=== PATIENT | female | born 1975 | race Caucasian/White ===

== ENCOUNTER 2020-08-23 16:05 | Day surgery (SDC) | payer OTHER, SELFPAY ==
[2020-08-23] VITALS (11 sets, daily range): BP systolic 111–134; BP diastolic 61–107; PULSE 91–124; RESP 10–22; TEMP 36.6–37.3; O2SAT 96–100
--- NOTE | ~2020-08-23 | US_ITS ---
EXAMINATION: US OB <=14 wk fetus w TV EXAM DATE: 08/23/2020 18:40 INDICATION: Ectopic 1st trimester. TECHNIQUE: Pelvic obstetrical transabdominal sonogram was performed by a technologist. There are mu ltiple grayscale and Doppler images available for interpretation. There are no earlier studies of th is gestation for comparison. FINDINGS: Uterus measures 6.6 x 2.9 x 3.3 cm, without intrauterine identified. Cannot iden tify any image capturing measurement of endometrial stripe thickness, but it is within normal limits. There is moderate free pelvic fluid. Early intrauterine or recent spontaneous are common causes of elevated beta hCG in absence of intrauterine confirmation. Ultrasound ca n sometimes identify, but never exclude an ectopic in the setting of positive beta hCG. Fo llow up as warranted clinically with serial beta hCG levels or ultrasound. Right adnexa: The ovary measures 2.4 x 1.8 x 2.8 cm and is morphologically normal. Ovarian vascular f low confirmed. Left adnexa: The ovary measures 4.1 x 3.1 x 3.7 cm, mildly enlarged with heterogeneous echogenicity. No color or Doppler flow was obtained. Appearance is suspicious for ovarian torsion. IMPRESSION: 1. Mildly enlarged heterogeneous left ovary without flow identified. Probable ovarian torsion. 2. No intrauterine or extrauterine identified. I discussed suspicion of torsion with Gem Blandon MD at 08/23/2020 18:54 RETORT COOLER. Reviewed, dictated and finalized at location A. RT COOLER
[2020-08-23 16:53] LABS: Basophils Absolute Auto 0.1 K/mm3 (0.0-0.1); Basophils Percent Auto 0.6 % (0.2-1.2); Eosinophils Absolute Auto 0.1 K/mm3 (0-0.3); Eosinophils Percent Auto 0.5 % (0-4.4); Hematocrit 37.9 % (37.0-47.0); Hemoglobin 12.9 g/dL (12.0-15.0); Immature Granulocyte Absolute 0.14 K/mm3 (0.00-0.031); Lymphocytes Absolute Auto 2.71 K/mm3 (0.9-3.2); Lymphocytes Percent Auto 19.3 % (18.3-44.2); Mean Corpuscular Hemoglobin 32.5 pg (26-34); Mean Corpuscular Volume 95.5 fl (80-100); Mean Platelet Volume 9.5 fl (7.4-10.4); Monocytes Absolute Auto 0.8 K/mm3 (0.1-0.6); Neutrophils Absolute Auto 10.2 K/mm3 (1.3-6.7); Neutrophils Percent Auto 72.6 % (45.5-73.1); Platelet Count Result 332 k/mm3 (150-375); Red Blood Count 3.97 M/mm3 (4.2-5.4); Red Cell Distribution Width 14.6 % (11.5-14.5)
[2020-08-23 16:58] LABS: Add Urine Microscopic? YES; Appearance Urine Clear (Clear); Bilirubin Urine Negative (Negative); Blood Urine 3+ (Negative); Color Urine Yellow (Yellow); Glucose Urine UA Negative (Negative); Ketones Urine Negative (Negative); Leukocyte Esterase Ur Negative LEU/UL (Negative); Mucus Urine Rare /lpf; Nitrate Urine Negative (Negative); Protein Urine Negative (Negative); RBC Urine >75 /hpf (0-2); Specific Grav Ur 1.024 (1.001-1.035); Squamous Epithelial Cell Urine Rare /hpf (Few); Urobilinogen Urine Negative mg/dL (<2.0); WBC Urine 0-3 /hpf
[2020-08-23 17:04] LABS: Alanine Aminotransferase 29 U/L (4-35); Albumin Level 4.3 g/dL (3.5-5.1); Alkaline Phosphatase 84 U/L (38-126); Anion Gap 7 mmol/L (8-16); Aspartate Amino Transferase 35 U/L (14-36); Bilirubin,Total 0.7 mg/dL (0.2-1.3); Blood Urea Nitrogen 9 mg/dL (7-17); Carbon Dioxide 18 mmol/L (22-30); Chloride 109 mmol/L (98-107); Estimated CRCL calculation 92 ml/min; Estimated Glomerular Filt Rate > 60; Glucose 108 mg/dL (65-105); Lipase 32 U/L (23-300); Potassium 3.8 mmol/L (3.4-5.0); Sodium 134 mmol/L (137-145)
--- NOTE | 2020-08-23 17:44 | ED.FEMALEGU ---
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 The starting her menstrual cycle May 16, this morning patient also developed heavy bleeding with blood clots. test came back positive at her family physician office then referred to the emergency room to rule out ectopic . Patient is 1 para 1 0. Patient does not use any contraceptive measures and is sexually active Related Data Home Medications Medication Instructions Recorded Confirmed etonogestrel 68 mg subdermal 1 implant SUBDERMAL ONCE 08/23/20 08/23/20 implant Allergies Allergy/AdvReac Type Severity Reaction Status Date / Time No Known Allergies Allergy Verified 08/23/20 15:09 Review of Systems Review of Systems: Narrative: CONSTITUTIONAL: Denies fever, chills, or sweats. EYES: Denies visual changes, redness, or discharge. ENT: Denies rhinorrhea, congestion, sore throat, or otalgia. CARDIOVASCULAR: Denies chest pain, palpitations, or edema. RESPIRATORY: Denies cough or dyspnea. GASTROINTESTINAL: Denies abdominal pain, nausea, vomiting, or diarrhea. GENITOURINARY: Denies dysuria or hematuria. SKIN: Denies rash or itching. MUSCULOSKELETAL: Denies back pain, joint pain, or myalgia. NEUROLOGIC: Denies headache, numbness, or weakness. PSYCHIATRIC: Denies anxiety or depression. PMFSH Past Medical History Medical History Mucous polyp of cervix Family History Family History Mother Family history of hypercholesterolemia Hypertension Family history of arthritis Grandparent Family history of malignant neoplasm of breast Other Cerebrovascular accident Social History Social History Smoking status: Current every day smoker Second hand tobacco smoke exposure: No Alcohol intake: current Gender identity (if verbalized by the patient): Female Exam Narrative: Exam Narrative: General appearance: Well-developed, well-nourished Skin: Normal color Head: Normocephalic, nontraumatic Eyes: Clear conjunctiva ENT: Oropharynx normal, ears normal, nose normal Neck: Supple, nontender Chest and respiratory: Airway patent, no respiratory distress, no accessory muscle use Heart: Regular rate/rhythm Abdomen: Soft, diffuse tenderness of the lower abdomen mainly left lower quadrant, no organomegaly, quiet bowel sounds Vascular: Normal peripheral pulses, normal capillary refill. 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 Gabriella Magaña Date: 08/23/20 Time: 19:35 Vital Signs Vital signs: Vital Signs Temperature 36.6 C 08/23/20 16:33 Pulse Rate 124 H 08/23/20 16:33 Respiratory Rate 22 H 08/23/20 16:33 Blood Pressure 112/61 08/23/20 16:33 Pulse Oximetry 100 08/23/20 16:33 Temperature 36.6 C 08/23/20 16:33 Pulse Rate 91 08/23/20 19:25 Respiratory Rate 15 08/23/20 19:25 Blood Pressure 134/91 H 08/23/20 19:25 Pulse Oximetry 98 08/23/20 19:25 MDM - Female Genitourinary MDM Narrative Medical decision making narrative: Patient presents with lower abdomina
[2020-08-23] MEDS: ONDANSETRON INJ 4 MG/2 ML VIAL IV PUSH (19:38)
[2020-08-23] MEDS: MORPHINE SULFATE (*CRX) 4 MG/ML INJ IV PUSH (19:39)
--- NOTE | 2020-08-23 19:55 | PM.IMHP ---
H&P: HPI History of Present Illness Date/Time: 08/23/20 19:55 Chief Complaint: pain l Narrative: Viola Murillo is a 44 year old female admitted with quantitative HCG is 1720 an ultrasound showing a left adnexal mass with possible torsion. No intrauterine is seen in the endometrial stripe appears within normal limits. Free fluid is also seen this is consistent with a likely ectopic and possible torsion. I have discussed the findings with her and risks and benefits of laparoscopy with possible left salpingostomy, possible left salpingectomy, possible left salpingo-oophorectomy being possible. Notably she has a Nexplanon in which was due out in early April. She also has had a previous section. Review of Systems Review of Systems: All systems reviewed & are unremarkable except as noted in HPI and below PMFSH Past Medical History Medical History Mucous polyp of cervix Family History Family History Mother Family history of hypercholesterolemia Hypertension Family history of arthritis Grandparent Family history of malignant neoplasm of breast Other Cerebrovascular accident Social History Social History Smoking status: Current every day smoker Second hand tobacco smoke exposure: No Alcohol intake: current Gender identity (if verbalized by the patient): Female Meds Home Medications and Allergies Home Medications Medication Instructions Recorded Confirmed Type etonogestrel 68 mg subdermal 1 implant SUBDERMAL ONCE 08/23/20 08/23/20 History implant Allergies Allergy/AdvReac Type Severity Reaction Status Date / Time No Known Allergies Allergy Verified 08/23/20 15:09 Vital Signs Vital Signs - 24 hr 08/23/20 16:33 08/23/20 17:51 08/23/20 19:25 Temperature 97.9 F Pulse Rate 124 H 102 H 91 Respiratory Rate 22 H 14 15 Blood Pressure 112/61 128/107 H 134/91 H Pulse Oximetry 100 100 98 Exam Const: General: no acute distress Eyes: General: appearance normal, both eyes and all related structures Neck: Neck: supple and no JVD Thyroid: thyroid normal Resp: Effort & Inspection: normal respiratory effort Auscultation: clear to auscultation bilaterally Cardio: Rate: regular rate Rhythm: regular rhythm GI: Inspection: normal to inspection GI Palp: Yes Guarding due to palpation present (GI) Auscultation: normal bowel sounds : External Female Exam: normal external appearance Speculum Exam - Cervix: normal appearance of the cervix Bimanual exam- vagina & uterus: cervical motion tenderness, enlarged and Uterine tenderness Bimanual Exam- Adnexa, other: tender on the left Skin: General skin exam: no rashes or lesions noted Extrem: General: normal to inspection and no edema Psych: Mental Status: mental status grossly normal Affect: normal affect H&P: Results Labs Labs: Short CBC 08/23/20 Range/Units 16:41 WBC 14.0 H (4.5-10.0) K/mm3 Hgb 12.9 (12.0-15.0) g/dL Hct 37.9 (37.0-47.0) % Plt Count 332 (150-375) k/mm3 BMP 08/23/20 16:41 Sodium 134 L Potassium 3.8 Chloride 109 H Carbon Dioxide 18 L BUN 9 Creatinine 0.70 Glucose 108 H Calcium 9.0 Liver Function 08/23/20 Range/Units 16:41 Total Bilirubin 0.7 (0.2-1.3) mg/dL AST 35 (14-36) U/L ALT 29 (4-35) U/L Alkaline Phosphatase 84 (38-126) U/L Albumin 4.3 (3.5-5.1) g/dL Urine 08/23/20 Range/Units 16:41 Urine Color Yellow (Yellow) Urine Appearance Clear (Clear) Urine pH 5.0 (5.0-9.0) Ur Specific [place] 1.024 (1.001-1.035) Urine Protein Negative (Negative) mg/dL Urine Glucose (UA) Negative (Negative) mg/dL Assessment and Plan Additional Plan Impression: Abdominal pain in a patient with a quantitative HCG of 172
--- NOTE | 2020-08-23 20:04 | WPDANESEPP ---
Anes - Eval Pre Procedure Date/Time: 08/23/20 20:04 Pre Op Diagnosis: Cramps in Stomach, Positive Preg Patient Data Age: 44 Gender: F Height: 1.63 m Weight: 79.3 kg Last Vital Signs Temp 36.6 C 08/23/20 16:33 Pulse 91 08/23/20 19:25 Resp 15 08/23/20 19:25 BP 134/91 H 08/23/20 19:25 Pulse Ox 98 08/23/20 19:25 Allergies Allergy/AdvReac Type Severity Reaction Status Date / Time No Known Allergies Allergy Verified 08/23/20 15:09 Home Medications Medication Instructions Recorded Confirmed Type etonogestrel 68 mg subdermal 1 implant SUBDERMAL ONCE 08/23/20 08/23/20 History implant hydrocodone-acetaminophen 1 tablet PO Q6H PRN #30 tablet 08/23/20 Rx Laboratory Tests 08/23/20 08/23/20 08/23/20 16:40 16:41 16:41 WBC 14.0 K/mm3 H K/mm3 (4.5-10.0) RBC 3.97 M/mm3 L M/mm3 (4.2-5.4) Hgb 12.9 g/dL g/dL (12.0-15.0) Hct 37.9 % % (37.0-47.0) MCV 95.5 fl fl (80-100) MCH 32.5 pg pg (26-34) MCHC 34.0 g/dl g/dl (32-36) RDW 14.6 % H % (11.5-14.5) Plt Count 332 k/mm3 k/mm3 (150-375) MPV 9.5 fl fl (7.4-10.4) Immature Gran % (Auto) 1.0 % H % (0-0.5) Neut % (Auto) 72.6 % % (45.5-73.1) Lymph % (Auto) 19.3 % % (18.3-44.2) [place] % (Auto) 6.0 % % (2.6-8.5) Eos % (Auto) 0.5 % % (0-4.4) Baso % (Auto) 0.6 % % (0.2-1.2) Lymph # (Auto) 2.71 K/mm3 K/mm3 (0.9-3.2) [place] # (Auto) 0.8 K/mm3 H K/mm3 (0.1-0.6) Eos # (Auto) 0.1 K/mm3 K/mm3 (0-0.3) Baso # (Auto) 0.1 K/mm3 K/mm3 (0.0-0.1) Abs Immat Gran (auto) 0.14 K/mm3 H K/mm3 (0.00-0.031) Absolute Neuts (auto) 10.2 K/mm3 H K/mm3 (1.3-6.7) Absolute Nucleated RBC 0.0 K/mm3 K/mm3 (0.0-0.012) Nucleated RBC % 0.0 % % (0.0-0.2) Sodium Potassium Chloride Carbon Dioxide Anion Gap BUN Creatinine Estim Creat Clear Calc Estimated GFR Glucose Calcium Total Bilirubin AST ALT Alkaline Phosphatase Total Protein Albumin Lipase Beta HCG, Quant 1720.20 mIU/ML mIU/ML Urine Color Yellow (Yellow) Urine Appearance Clear (Clear) Urine pH 5.0 (5.0-9.0) Ur Specific [place] 1.024 (1.001-1.035) Urine Protein Negative mg/dL mg/dL (Negative) Urine Glucose (UA) Negative mg/dL mg/dL (Negative) Urine Ketones Negative mg/dL mg/dL (Negative) Ur Blood (Man) 3+ H (Negative) Urine Nitrate Negative (Negative) Urine Bilirubin Negative (Negative) Urine Urobilinogen Negative mg/dL mg/dL (<2.0) Leukocyte Esterase Rfl Negative IVETH/UL IVETH/UL (Negative) Urine RBC >75 /hpf H /hpf (0-2) Urine WBC 0-3 /hpf /hpf Ur Squamous Epith Cells Rare /hpf /hpf (Few) Urine Mucus Rare /lpf /lpf Blood Type Antibody Screen Screen Baby's Blood Type Baby's NIKKI Doses of RhIg Required 08/23/20 08/23/20 16:41 18:00 WBC RBC Hgb Hct MCV MCH MCHC RDW Plt Count MPV Immature Gran % (Auto) Neut % (Auto) Lymph % (Auto) [place] % (Auto) Eos % (Auto) Baso % (Auto) Lymph # (Auto) [place] # (Auto) Eos # (Auto) Baso # (Auto) Abs Immat Gran (auto) Absolute Neuts (auto) Absolute Nucleated RBC Nucleated RBC % Sodium 134 mmol/L L mmol/L (1
--- NOTE | 2020-08-23 20:13 | WPDHPUPDATE1 ---
History and Physical Update Update Date/Time: 08/23/20 20:13 History and Physical has been reviewed, including an updated exam of the patient. There are NO changes in the patient's condition. Risks, benefits, and alternatives have been discussed and questions answered. Patient agrees to proceed with procedure.
[2020-08-23] MEDS: ceFAZolin 2 GM/D5W 50 ML 2 GM/50 ML BAG IVPB (20:58)
[2020-08-23] MEDS: LACTATED RINGERS 1,000 ML 30 ML IV CONT (21:00)
--- NOTE | 2020-08-23 21:08 | P.PNAN_ITS ---
Anes - Eval Final PreProcedure Day of Procedure 08/23/20 21:08 Patient weight: obese Heart: regular rate and rhythm Lungs: clear to auscultation and normal air movement Airway: Mallampati scale class II Neurological: alert and oriented Last oral intake: >/= 8 hours ASA classification: II Emergent: yes Anesthetic plan: proceed Anesthesia type and monitoring: general ETT Informed Consent: The patient's anesthetic plan and its attendant risks and be nefits were discussed with the patient/family/POA. Questions were solicited and answers provided to the satisfaction of the patient/family/POA.
--- NOTE | 2020-08-23 21:45 | PM.PROC ---
Procedure Note - Detailed Date of procedure: 08/23/20 Pre-op diagnosis: Cramps in Stomach, Positive Preg Surgeon: Bob Uriarte MD Postop diagnosis: Left tubal ectopic /hemato peritoneum Procedure: Laparoscopic left partial salpingectomy and evacuation of hemato peritoneum Anesthesia: General endotracheal EBL: [id number] for the procedure. [id number] of clots and blood were found in the abdomen upon entrance Complications: None Findings: Ruptured left distal tubal ectopic . Hemato peritoneum. Normal-appearing ovaries tube on the right and uterus. Description of procedure: The patient was prepped and draped in the normal sterile fashion placed in dorsal lithotomy position. Under excellent general endotracheal anesthesia weighted speculum placed in posterior fornix of vagina. Anterior lip of the cervix grasped with a single-tooth tenaculum and the Barajas's cannula inserted attached to be used later for uterine manipulation. After emptying the bladder of clear urine the weighted speculum was removed. Gloves were changed. A supraumbilical incision made the Veress needle passed in the abdomen. The abdomen filled with CO2 gas to 15mm Hg. The 5mm trocar advanced in the abdomen under direct visualization no injury seen. Patient placed in Trendelenburg and a suprapubic incision made. The 5mm trocar advanced under direct visualization assuring injury. Hemato peritoneum could be seen and this was suctioned until clear. The ectopic was seen in the left fallopian tube the ovary each ovary appeared within normal limits as did the right fallopian tube the uterus. It was deemed that the distal portion of the left ovary tube was not salvageable. Using the LigaSure this was clamped burned and cut with the LigaSure. This was brought through left lower quadrant incision. Irrigation was undertaken until clear and the remainder of any blood was removed by removing the patient between Trendelenburg and reverse Trendelenburg and Trendelenburg again. The pedicle appeared dry. The lower sites removed after gas removed from the abdomen. The is the upper site removed and the incisions closed with 4 O Monocryl and glue. All sponge, needle, instrument counts were correct. There were no immediate complications
[2020-08-23] MEDS: fentaNYL CITRATE INJ (*CRX) 100 MCG/2 ML VIAL 25 MCG IV PUSH ×4 (22:10→22:26)
[2020-08-23] MEDS: HYDROmorphone HCL INJ (*CRX) 1 MG/ML SYR 0.25 MG IV PUSH ×4 (22:30→22:42)
[2020-08-23] MEDS: oxyCODONE HCL (*CRX) 5 MG TAB IR PO (23:23)
== END 2020-08-23 23:48 | disposition home or self-care (01) ==
LOC: ANHED 19:41 → ANHSURGERY 20:00
PROVIDERS: Emergency Medicine; Emergency Provider Emergency Medicine; PCP Family Medicine; Visit Provider Obstetrics & Gynecology
PROC: (CPT 49320; principal; 2020-08-23 20:45)
DX: O00.102 Left tubal pregnancy without intrauterine pregnancy (principal); K66.1 Hemoperitoneum; F17.200 Nicotine dependence, unspecified, uncomplicated
CPT/HCPCS: 59151; 36415; 76801; 76817; 80053; 81001; 81025; 83690; 84702; 85025; 85461; 88302; 88305; 96374; 96375; 99285; A9270; J0330; J0690; J1100; J1170; J1885; J2250; J2270; J2405; J2704; J2710; J3010; J7030; J7120

== ENCOUNTER 2023-02-23 01:09 | Emergency (ER) | payer OTHER, SELFPAY ==
[2023-02-23] VITALS (15 sets, daily range): BP systolic 121–156; BP diastolic 83–107; PULSE 89–99; RESP 13–25; TEMP 36.2; O2SAT 96–100
--- NOTE | 2023-02-23 01:30 | ED.BACK ---
HPI - Back Pain/Injury General Chief Complaint: Back Pain/Injury Stated Complaint: Lower back pain radiating down leg Time Seen by Provider: 02/23/23 01:30 Source: patient and family (spouse) Mode of arrival: ambulatory Limitations: no limitations History of Present Illness HPI Narrative: patient is a 47-year-old female who presents emergency department today ambulatory with her spouse for evaluation of pain to the left lower back that radiates to the left leg. Denies any recent injury or fall. She denies any numbness or tingling to bilateral lower extremities, loss of control of her bowels or bladder, numbness to her groin, urinary symptoms, nausea, vomiting, abdominal pain, diarrhea, constipation, fever, chills, or any other symptoms. denies chance of . states she started her period today and thought it was just cramps at first. Related Data Home Medications Medication Instructions Recorded Confirmed etonogestrel 68 mg subdermal 1 implant subdermal ONCE 08/23/20 11/27/21 implant (Nexplanon) Allergies Allergy/AdvReac Type Severity Reaction Status Date / Time No Known Allergies Allergy Verified 02/23/23 01:20 Review of Systems Review of Systems: CONSTITUTIONAL: Denies fever, chills, or sweats. EYES: Denies visual changes, redness, or discharge. ENT: Denies rhinorrhea, congestion, sore throat, or otalgia. CARDIOVASCULAR: Denies chest pain, palpitations, or edema. RESPIRATORY: Denies cough or dyspnea. GASTROINTESTINAL: Denies abdominal pain, nausea, vomiting, or diarrhea. GENITOURINARY: Denies dysuria or hematuria. SKIN: Denies rash or itching. MUSCULOSKELETAL: +back pain left lower radiating down leg. Denies joint pain, or myalgia. NEUROLOGIC: Denies headache, numbness, or weakness. PSYCHIATRIC: Denies anxiety or depression. All systems reviewed & are unremarkable except as noted in HPI and below PMFSH Past Medical History Medical History Acute sinusitis Miscarriage Mucous polyp of cervix Postoperative pain Ruptured ectopic Postop diagnosis: Left tubal ectopic /hemato peritoneum 2.17.21:Procedure: Laparoscopic left partial salpingectomy and evacuation of hemato peritoneum Torsion of left ovary Surgical History Surgical History H/O unilateral salpingectomy Postop diagnosis: Left tubal ectopic /hemato peritoneum Procedure: Laparoscopic left partial salpingectomy and evacuation of hemato peritoneum Family History Family History Mother Family history of hypercholesterolemia Hypertension Family history of arthritis Grandparent Family history of malignant neoplasm of breast Other Cerebrovascular accident Social History Social History Smoking status: Current every day smoker Second hand tobacco smoke exposure: No Alcohol intake: current Living arrangements: with family Gender identity (if verbalized by the patient): Female Exam Narrative: GENERAL: Well-appearing, well-nourished, obese, and in no acute distress. HEAD: Normocephalic, atraumatic. EYES: PERRLA and EOMI. ENT: Nares clear, no rhinorrhea or epistaxis. Mucous membranes moist. NECK: Supple. CHEST: Clear to auscultation. No respiratory distress. HEART: Regular rate and rhythm. No murmur heard. Normal peripheral pulses. ABDOMEN: Soft, nontender, nondistended, normal active bowel sounds. BACK: no tenderness on exam to paraspinal muscles. no edema/swelling/erythema/rash noted. negative lumbar step-off sign. no midline bony tenderness. full ROM noted. EXTREMITIES: Normal range of motion. No edema. SKIN: Warm, dry, no rash. NEURO: No focal deficits. Alert and oriented x3. UE and LE distal pulses, sensation, cap refill, temperature, patellar reflex and strength int
[2023-02-23] MEDS: diazePAM (*CRX) 5 MG TABLET PO (01:47)
[2023-02-23] MEDS: KETOROLAC 30 MG/ML VIAL (*BKC) IM (01:47)
[2023-02-23] MEDS: LIDOCAINE 5% PATCH 1 PATCH TRANSDERM (01:58)
[2023-02-23] MEDS: HYDROcodone/acetaminophen (*CRX) 10-325 MG TABLET 1 TAB PO (02:39)
--- NOTE | 2023-02-23 02:50 | PC.NURSE ---
Pt was made aware a urine sample was needed. Pt unhooked herself from monitor and went to the bathroom and used the bathroom without providing a urine sample. KODI Florence made aware.
== END 2023-02-23 03:16 | disposition home or self-care (01) ==
PROVIDERS: Emergency Provider Nurse Practitioner; PCP Family Medicine
DX: M54.42 Lumbago with sciatica, left side (principal); R03.0 Elevated blood-pressure reading, without diagnosis of hypertension; Z90.79 Acquired absence of other genital organ(s); F17.200 Nicotine dependence, unspecified, uncomplicated
CPT/HCPCS: 96372; 99283; A9270; J1885

== ENCOUNTER 2023-03-07 09:46 | Outpatient (CLI) | payer OTHER, SELFPAY ==
--- NOTE | ~2023-03-07 | XR_ITS ---
EXAMINATION: XR lumbar spine 2-3V DATE: 03/07/2023 10:09 INDICATION: Radiculopathy, lumbar region. TECHNIQUE: 3 views of lumbar spine were obtained. COMPARISON: Lumbar spine radiographs 07/11/2014 FINDINGS: Bone alignment is normal. Vertebral body heights are normal. There is mildly decreased disc height at L3-L4, moderately decreased disc height at L4-L5, and mildly decreased disc height at L5-S 1. There is multilevel mild to moderate facet joint osteoarthritis. IMPRESSION: 1. Moderate lumbar spondylosis, worsened from 07/11/2014. Reviewed, dictated and finalized at location E.
== END 2023-03-07 09:47 | disposition home or self-care (01) ==
PROVIDERS: PCP Family Medicine; Visit Provider Physician Assistant
DX: M47.26 Other spondylosis with radiculopathy, lumbar region (principal)
CPT/HCPCS: 72100

== ENCOUNTER 2023-03-21 09:15 | Outpatient (RCR) | payer OTHER, SELFPAY ==
--- NOTE | 2023-03-18 13:04 | OPREHPOC ---
Outpatient Therapy Plan of Care This is a Multidisciplinary Plan of Care that may contain components documented by all disciplines (PT, OT, and ST.) PT Problem 1 PT Problem #1 Knowledge Deficit PT Goal 1 Goal Independent with HEP Target Visit 4 PT Problem 2 PT Problem #2 Impaired Gait PT Goal 1 Goal Patient will ambulate for 5+ minutes with no increase back pain Target Visit 8 PT Problem 3 PT Problem #3 Pain PT Goal 1 Goal Report no greater than 1/10 pain with sitting greater than 5 minutes Target Visit 8 PT Problem 4 PT Problem #4 Impaired Strength PT Goal 1 Goal Improve karley hip flexion strength to 5/5 to improve foot clerance with ADLs PT Goal 2 Goal Improve karley hip abduction strength to 4+/5 to improve lateral pelvic stability with ADLs and walking Target Visit 8 PT Problem 5 PT Problem #5 Impaired Range of Motion PT Goal 1 Goal Demonstrate mild restriction in karley piriformis to reduce sciatic nerve compression Target Visit 8 PT Goal 2 Goal Demonstrate -20 or less hamstring restriction to improve symmetrical pelvic pull with activity Target Visit 8
--- NOTE | 2023-03-18 13:04 | PTOPEVAL1 ---
Assessment and note entered by Kameron Kruger, PT Evaluation Information Assessment Status Evaluation Diagnosis Lumbar region Radiculopathy Onset 02/04/23 Subjective Information Reports that she has back in whole low back with radiating pain down left leg. She gets increased pain with coughing and a pulling feeling with mobility. Pain typically stays above foot but has radiated to it. Struggles with lifting and going upstairs into flexion. She has been losing sleep but not sure if due to anxiety or pain. Reported Pain Level Pain Score 7: Self Report Assessment PT Clinical Summary Patient presents with discogenic like symptoms but also presents with anterior pelvic tilt and risk of stenotic and facet agitation. Will benefit from decompressive/hip disassociation therapy to address kinematic chain and reduce discogenic stress with ADLs and flexion based activity. Plan of Care Interventions Gait Training,Hot Pack/Cold Pack,Manual Therapy, Neuro Re-education,Patient/Caregiver Education, Therapeutic Activities,Therapeutic Exercise PT Services Indicated Yes Treatment Frequency and 2x/week for 4 weeks Duration These treatments will address the objective and functional deficits as defined above. The patient will be advanced safely and appropriately in order for the patient to progress towards his/her prior level of function. Additional exercises will be introduced and as well as a comprehensive home exercise program upon discharge, if needed, ?to ensure carryover of functional gains achieved in the clinic. This treatment plan has been reviewed and agreement upon by the patient.
--- NOTE | 2023-05-05 13:26 | PTOPDC ---
Assessment and note entered by Kameron Kruger, PT Discharge Information Assessment Status Discharge - Pt Not Present Diagnosis Lumbar region Radiculopathy Onset 02/04/23 Subjective Information Reports that she has back in whole low back with radiating pain down left leg. She gets increased pain with coughing and a pulling feeling with mobility. Pain typically stays above foot but has radiated to it. Struggles with lifting and going upstairs into flexion. She has been losing sleep but not sure if due to anxiety or pain. Assessment PT Clinical Summary Patient has failed to return to therapy since second visit on 03/21/23. Will be discharged from skilled therapy at this time. Plan of Care PT Services Indicated Yes
== END 2023-05-05 14:25 | disposition home or self-care (01) ==
LOC: ANHPT 09:15
PROVIDERS: PCP Family Medicine; Visit Provider Nurse Practitioner Family
DX: M54.16 Radiculopathy, lumbar region (principal)
CPT/HCPCS: 97110; 97140; 97161

== ENCOUNTER 2024-04-28 09:18 | Outpatient (CLI) | payer SELFPAY ==
--- NOTE | ~2024-04-28 | XR_ITS ---
EXAMINATION: XR chest 2V 04/28/2024 09:43 INDICATION: Cough for 2 months. Bronchitis. PROCEDURE: 2 view chest COMPARISON: No prior studies for comparison. FINDINGS: The lungs are clear. The cardiomediastinal silhouette is within normal limits. There are no pleural effusions. There is no pneumothorax suspected. IMPRESSION: 1: NO ACUTE CARDIOPULMONARY DISEASE. Reviewed, dictated and finalized at location B.
== END 2024-04-28 09:19 | disposition home or self-care (01) ==
PROVIDERS: PCP Family Medicine; Visit Provider Nurse Practitioner Family
DX: R05.9 Cough, unspecified (principal); Z87.09 Personal history of other diseases of the respiratory system; Z87.891 Personal history of nicotine dependence
CPT/HCPCS: 71046

== ENCOUNTER 2025-03-30 09:41 | Outpatient (CLI) | payer OTHER, SELFPAY ==
--- OUTSIDE RECORDS SUMMARY | 2008-12-22 11:00 | XMS_ITS | Continuity of Care Document ---
Author Organization [facility] Address [address] [place] [address] Phone Care Team Providers Care Behavioral Health Professional Name Role Phone Barrett OD, Richard Unavailable Unavailable Procedures Procedure Date Eye Exam & Treatment Refraction Post-op Follow-up Visit Post-op Follow-up Visit Post-op Follow-up Visit Post-op Follow-up Visit Post-op Follow-up Visit Post-op Follow-up Visit Allegretto-Lasik Comanaged Allegretto-Lasik Comanaged Refractive Rx Kit Sales Tax No Charge Refractive Evaluation 008 Refractive Evaluation Corneal Topography Advance Directives Directive Yes / No Effective Date File Name No Information Encounters Encounter Description Practice Location Reason(s) For Visit Diagnoses Date Provider Providers Copied on Encounter Formerly [facility], [id number] [place] [address] [address], [place], [place], [id number], [place] tel:[phone] [facility] No Information 8-200 9 Barrett OD Richard. [address] , [address], [place], [address], [place]. tel:[phone] Formerly [facility], [address], [place], [place], [id number], tel:[phone] [facility] No Information 5-200 9 Barrett OD Richard. [address] , [address], [place], [place], [facility], [place]. tel:[phone] [facility], [address], [place], [place], [id number], [place] tel:[phone] [facility] No Information Sep-1 8-200 8 Barrett OD Richard. [address] , [address], [place], [place], [facility], [place]. tel:[phone] [facility], [address] [place] [address] [address], [place], [place], [id number], [place] tel:[phone] [facility] No Information Jan-2 4-200 8 Barrett OD Richard. [address] , [address], [place], [facility], [place]. tel:[phone] [facility], [address] [place] [address] [address], [place], [place], [id number], [place] tel:[phone] [facility] No Information Jan-1 0-200 8 Barrett OD Richard. [address], [place], [facility], [place]. tel:[phone] [facility], [address] [place] [address] [address], [place], [place], [id number], [place] tel:[phone] [facility] No Information Thomas-2 6-200 8 Barrett OD Richard. [address] , [address], [place], [facility], [place]. tel:[phone] [facility], [address] [place] [address] [address], [place], [place], [id number], [place] tel:[phone] [facility] [place] No Information Thomas-2 1-200 8 Barrett OD Richard. [address], [place], [facility], [place]. tel:[phone] [facility], [address], [place], [place], [id number], [place] tel:[phone] [facility] No Information Dec-2 0-200 8 Krishnasamy Ruben. [address], [place], [facility], [place]. tel:[phone] Referring Provider: Richard Tony, [address], [place], [facility]. tel:[phone] [facility], [address] [place] [address] [address], [place], [place], [id number], tel:[phone] [facility] No Information Dec-1 1-200 8 Krishnasamy Ruben. [address] [facility] [address], [place], [facility], [place]. tel:[phone] [facility], [address] [place] [address] [address], [place], [place], [id number], [place] tel:[phone] [facility] No Information Thomas-0 5-200 8 Barrett OD Richard. [facility], [place], [facility], [place]. tel:[phone] [facility], [address] [place] [address] [address], [place], [place], [id number], [place] tel:[phone] [facility] No Information Oct-1 5-200 8 [facility]. [address] [place] [address], [id number], . tel:[phone] Referring Provider: Richard Tony, [address], [place], [facility]. tel:[phone] Family History Family Member Type Diagnosis Age At Onset No Information Payers Payer name Insurance type Covered democrat ID Nathalie dalton(s) [facility] Commercial CI [id number] Social History Type Description Quantity Date Captured Comments Sex Female Smoking Status No Information Chief Complaint And Reason For Visit No Information Reason For Referral Reason For Referral No Information History Of Present Illness Encounter Date Complaint History Of Prese nt Illness No Information Functional Status Date Functional Assessmen t No Information Instructions Date Instruction Additional Infor mation No Information Assessments Type Assessment Date No Information Patient Care Teams Name Effective Dates (start - stop) Status Members No Information
[2025-03-30 19:18] LABS: Alanine Aminotransferase 54 U/L (6-35); Albumin Level 4.5 g/dL (3.5-5.1); Alkaline Phosphatase 95 U/L (38-126); Anion Gap 10 mmol/L (4-12); Aspartate Amino Transferase 45 U/L (14-36); Bilirubin,Total 0.4 mg/dL (0.2-1.3); Blood Urea Nitrogen 11 mg/dL (7-17); Calcium 9.3 mg/dL (8.4-10.2); Carbon Dioxide 21 mmol/L (22-30); Chloride 104 mmol/L (98-107); Cholesterol 284 mg/dL (0-200); Estimated Glomerular Filt Rate > 60; Glucose 77 mg/dL (65-110); HDL Direct 54 mg/dL; Potassium 4.2 mmol/L (3.4-5.0); Sodium 135 mmol/L (137-145); Total Protein 8.0 g/dL (6.3-8.2); Triglycerides 400 mg/dL (<150)
[2025-03-30 19:27] LABS: Hematocrit 42.9 % (37.0-47.0); Hemoglobin 14.0 g/dL (12.0-15.0); Immature Granulocyte Percent A 1.1 % (0-0.5); Lymphocytes Absolute Auto 2.91 K/mm3 (0.9-3.2); Mean Corpuscular HGB Conc 32.6 g/dl (32-36); Mean Corpuscular Hemoglobin 30.8 pg (26-34); Mean Corpuscular Volume 94.3 fl (80-100); Nucleated Red Blood Cells Absolute Auto 0.000 K/mm3 (0.0-0.012); Nucleated Red Blood Cells Perc 0.0 % (0.0-0.2); Platelet Count Result 313 k/mm3 (150-375); Red Blood Count 4.55 M/mm3 (4.2-5.4); White Blood Count 11.5 K/mm3 (4.5-10.0)
[2025-03-30 20:02] LABS: Thyroid Stimulating Hormone 1.530 uIU/mL (0.465-4.680)
[2025-03-30 21:37] LABS: Hemoglobin A1C 5.3 % (<5.7)
== END 2025-03-30 09:42 | disposition home or self-care (01) ==
LOC: ANHGOSHLAB 09:42
PROVIDERS: PCP Nurse Practitioner Family; Visit Provider Nurse Practitioner Family
DX: Z12.11 Encounter for screening for malignant neoplasm of colon (principal); Z12.12 Encounter for screening for malignant neoplasm of rectum; G43.009 Migraine without aura, not intractable, without status migrainosus; M54.16 Radiculopathy, lumbar region; E78.2 Mixed hyperlipidemia; R73.01 Impaired fasting glucose; F17.200 Nicotine dependence, unspecified, uncomplicated
CPT/HCPCS: 36415; 80053; 80061; 83036; 84443; 85025